=== PATIENT | male | born 1995 | race Caucasian/White ===

== ENCOUNTER 2018-02-17 18:11 | Emergency (ER) | payer OTHER ==
[2018-02-17 18:16] VITALS: TEMP 96.8
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
[2018-02-17] MEDS ORDERED: HYDROmorphONE/DILAUDID 2 MG/ML INJ ONE (18:22)
[2018-02-17] MEDS ORDERED: NS 1,000 ML IV ONE (18:29)
[2018-02-17] MEDS ORDERED: HYDROmorphONE/DILAUDID 2 MG/ML INJ IVP ONE (18:33)
[2018-02-17] MEDS ORDERED: TDAP ADULT 0.5 ML INJ (BOOSTRIX) IM ONE (18:55)
[2018-02-17] MEDS ORDERED: ceFAZolin 2 GM in NS 100 ML IV ONE (18:56)
[2018-02-17 19:18] LABS: PLATELET COUNT 324 10^3/uL (150-400)
[2018-02-17 19:27] LABS: INR 0.99 (0.83-1.16); PROTIME(PATIENT) 13.3 SEC (12.0-15.0)
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
[2018-02-17 21:20] VITALS: BP 144/78; PULSE 100; RESP 16; O2SAT 98
== END 2018-02-17 21:19 | disposition home or self-care (01) ==
DX: S31.829A Unspecified open wound of left buttock, initial encounter (principal); E86.9 Volume depletion, unspecified; Z23 Encounter for immunization; W34.00XA Accidental discharge from unspecified firearms or gun, initial encounter; Y92.410 Unspecified street and highway as the place of occurrence of the external cause; Y99.8 Other external cause status; Y93.89 Activity, other specified
CPT/HCPCS: 96374; J0690; J1170